=== PATIENT | female | born 1940 | race Caucasian/White ===

== ENCOUNTER 2016-08-24 15:06 | Inpatient (IN) | payer MEDICARE ==
[~2016-08-24] VITALS: Ht 152.4 cm; Wt 45.5 kg
[~2016-08-24 15:06] MED LIST: CALC667C9 PO; CITA20TA PO; DIAZ10TA PO; FLAX100010 PO; FURO40TA4 PO; LACT1CAP44 PO; LEVO500T79 PO; MAGN800O PO; OMEG1CAP56 PO; ONDA-53 PO; OXYC1TAB24 PO; POLY17PO6 PO; TETR15DR77 BOTH_EYES
[2016-08-24 16:30] VITALS: BP 143/72; PULSE 65; RESP 17; O2SAT 95
--- NOTE | 2016-08-24 16:30 | NUR ---
admitted to room 1014 from [facility] ER 76 year old dialysis pt with SBO, her next dialysis day is Saturday 08/26. She has continual mild nausea, but no vomiting. abd soft, pt had normal BM this am at [facility] according to [facility] nurse. Diarrhea this afternoon after getting here. She denies pain really, says it just feels like a constant mild nausea
[2016-08-24] MEDS ORDERED: LACT1CAP75 PO (17:48)
[2016-08-24] MEDS ORDERED: OMEG-38 PO (17:48)
--- NOTE | 2016-08-24 17:49 | PCM.HPMED ---
Subjective Date of Service Aug 24, 2016 Primary Provider: Admitting Physician: Shahid Sheppard MD Primary Care Physician: Gisela Adams MD Attending Physician: Shahid Sheppard MD Chief Complaint: Abdominal pain for 11 days History of Present Illness: 76-year-old female with h/o multiple abdominal surgeries, small bowel obstructions secondary to adhesions, ESRD on HD, h/o renal cell CA s/p left nephrectomy and PUD is transferred from [facility] with necessary of surgical consult due to persistent SBO. Patient was in usual state of health until 11 days ago when she was treated for chronic skin infection on her leg with antibiotics daily, then next day, she started having sharp, periumbilical pain, which got transiently worse for 1- 2days then eased to dull pain, 2/10, pt was seen by PCP 7days ago, ordered CT abd, which was done today. CT abd showed pneumoatosis with intramural gas in celcum and ascending colon. Patient got a call from PCP to go to [facility] ED. patient then again was confirmed the findings with acute abominal series, was transferred to [facility] for surgical evaluation. patient has nausea always unchanged from baseline, no vomiting, having regular BM bid loose stools -unchanged, had poor appetite, otherwise, patient was well, denied fever, chills. labs at [place] showed wbc6.8, [id number], lactate0.5, [id number], [id number] Of note, patient was admitted with high-grade small bowel obstruction in 2014, thought to be related with post surgical adhesion given left nephrectomy for cancer and multiple hernia repair surgeries in the past. patient was treated conservatively w/o NG as pt refused. Symptoms/obstruction resolved with IVF, NPO , toleated diet and discharged. During the interview, patient didn't look toxic, c/o mild pain 2/10 on LLQ. ROS: denied chest pain, cough, sick contact, travel. Review of Systems: Pertinent positives as noted in history of present illness. All other systems were reviewed and are negative Allergies Coded Allergies: Penicillins (Verified Allergy, Severe, rash, 08/24/16) codeine (Verified Allergy, Severe, hallucinations, 08/24/16) prednisone (Verified Allergy, Severe, hallucinations, 08/24/16) cephalexin (Unverified Allergy, Intermediate, Rash, 08/24/16) Developed a rash 3 days after staring medication. amlodipine (Verified Allergy, Unknown, 08/24/16) hydrocodone (Verified Allergy, Unknown, Nausea, 08/24/16) Uncoded Allergies: PCN (Allergy, Unknown, 04/04/14) Home Medications Celexa 60 mg daily valium 30mg qhs percocet 5-325mg tid furosemide 80mg on Sat, Sun Miralax daily as needed Probiotic Fish oil Visine opth drops PMH Depression History of renal cancer status post left nephrectomy,resultant ESRD on HD on Mon , Mon Surgical History Hysterectomy Multiple hernia repair Left nephrectomy Family History No history of CAD Social History Hx Alcohol Use: No Hx Substance Use: No Hx Tobacco Use: No (quit smoking a year ago 3-6cig over 50yrs) Smoking Status: Current Every Day Smoker Additional Information lives alone with dog Exam Vital Signs Vital Sign - Last Date Time Temp Pulse Resp B/P Pulse Ox O2 Delivery O2 Flow Rate FiO2 08/24/16 16:30 36.7 65 17 143/72 95 Room Air Exam NAD, comfortably laying down on the bed no JVD, MMM, no LAD RRR, nl s1, s2 no mrg CTAB, no w,c S,ND,mild diffuse tenderness, hyperactive BS+ warm, no edema, pulses 2/2 Assessment & Plan 76-year-old female with h/o multiple abdominal surgeries, small bowel obstructions secondary to adhesions, ESRD on HD, h/o renal cell CA s/p left nephrectomy and PUD is transferred from [facility] with necessary of surgical consult acute, active abdominal pain, mild degree, subacute onset, POA, probable SBO vs ileus, concerning findings of pneumatosis. However, patient is not toxic looking, abodmen exam was relatively benign, no other GI symptms than pain, decreased appetite. -awaits official report of CT abd from [place] -spoke , given benign findings, surgery will see patient tomorrow. likely -recommended to keep NPO, avoid opioid, -would not start IVF given ESRD, will try small bolus, if patient develops vomiting, diarrhea -will control pain with tylenol, will consder NSAID if pain gets worse -will call clarification operator tonight, if pt acutely gets worse -hold home bowel regimen as well chronic, stable depression, continue celexa History of renal cancer status post left nephrectomy,resultant ESRD on HD on Mon , Fri, continue HD as scheduled, pt seems euvolemic dispo:Patient will be admitted with inpatient status with expectation of inpatient therapy for more than 2 midnights diet:NPO for now dvt ppx:HSQ DO NOT RESUSCITATE, DO NOT INTUBATE, verbally confirmed Time spent 65min Rich Win MD Aug 24, 2016 17:19
[2016-08-24] MEDS ORDERED: ZINC30CA PO (17:50)
[2016-08-24] MEDS ORDERED: FLAX100038 PO (17:50)
[2016-08-24] MEDS ORDERED: Ondansetron 2 mg/mL 2 mL Inj IVPUSH PRN (17:50)
[2016-08-24] MEDS ORDERED: [UNRECOGNIZED DRUG - CODE] PO (17:51)
[2016-08-24 20:10] VITALS: BP 96/49; PULSE 56; RESP 17; O2SAT 96
[2016-08-24] MEDS: Heparin 5,000 Unit/mL Inj SUBQ SCH (21:46)
[2016-08-25 00:19] VITALS: BP 119/60; PULSE 62; RESP 17; O2SAT 94
--- NOTE | 2016-08-25 04:18 | NUR ---
Activity Pt states nausea and pain are currently at baseline level. She reportedly has had no emesis and several loose BM today. Pt is NPO, given swabs and ice chips for comfort; she reports she maintains fluid restrictions at home as well. Next dialysis date Saturday 08/26. Per MD note no IVF to be initiated unless diarrhea/emesis occur. Pt reports no CP/SOB. Care continues
[2016-08-25 05:46] VITALS: BP 102/52; PULSE 64; RESP 17; O2SAT 95
[2016-08-25 05:46] LABS: BASOPHILS % (AUTO) 0.6 % (0-3); EOSINOPHILS % (AUTO) 1.7 % (0-5); MONOCYTES % (AUTO) 5.4 % (4-12); Mean Corpuscular Hemoglobin 32.6 pg (27.0-35.0); NEUTROPHILS % (AUTO) 69.1 % (40-74); Platelet Count 274 bil/L (150-400)
[2016-08-25 06:12] LABS: Magnesium 3.6 mg/dL (1.6-2.6); Phosphorus 3.6 mg/dL (2.5-4.9)
--- NOTE | 2016-08-25 07:58 | CONS ---
[address] [address] CONSULTATION REPORT PATIENT: MART MURPHY : 1940 MR#: [id number] ADMIT: 08/24/2016 JOB ID: [id number] DATE OF SERVICE: 08/25/2016 CHIEF COMPLAINT: Abdominal pain. HISTORY OF PRESENT ILLNESS: The patient is a 76-year-old woman, who was transferred to [facility] for admission by her primary care provider, Dr. Adams. The patient developed abdominal pain above her baseline on Monday. She has chronic nausea that has been present since she started dialysis over one year ago, associated with mild abdominal pain. The pain that she had was worse than normal, periumbilical and diffuse. She decided to "tough it out." She had a scheduled followup appointment with her primary care provider on Monday, so she kept that appointment. After discussing her symptoms with Dr. Adams, a CT scan of the abdomen and pelvis was obtained. This CAT scan did not have IV contrast, because of her chronic renal failure on hemodialysis. The CT scan showed imaging characteristics of pneumatosis coli affecting the cecum, right colon and proximal transverse colon. There was no free air and no portal venous gas. Because of those findings, it was recommended that she be evaluated by a surgeon. She was seen at [facility] and transferred to [facility] for surgical evaluation. Of note, she has been having normal bowel movements throughout this entire process. She has not had any vomiting. There has not been any blood in her stool. She thinks her last colonoscopy was 8-10 years ago. Right now she is not complaining of abdominal pain. She is hungry. PAST MEDICAL HISTORY: Chronic kidney disease on hemodialysis, Monday and Monday. Depression. PAST SURGICAL HISTORY: Left nephrectomy for renal cell carcinoma, hysterectomy, left inguinal hernia repair with mesh. HOME MEDICATIONS: Celexa, Valium, Percocet, furosemide, MiraLAX, probiotic, fish oil, Visine eye drops. ALLERGIES: 1. PENICILLINS. 2. CODEINE. 3. PREDNISONE. 4. KEFLEX. 5. AMLODIPINE. 6. HYDROCODONE. SOCIAL HISTORY: She quit smoking one year ago. She denies alcohol or illicit drug use. FAMILY HISTORY: Negative for coronary artery disease. REVIEW OF SYSTEMS: A 10-point review of systems is negative except as described in history of present illness. PHYSICAL EXAMINATION: Vital Signs: Body mass index 19.6, temperature 36.5, pulse 64, blood pressure 102/52, saturation 95% on room air. General: She is resting in bed in no acute distress. HEENT: Sclerae are anicteric. Mucous membranes are moist. Neck: No lymphadenopathy. Chest is clear. Heart: Regular rate and rhythm. No murmurs. Abdomen is nondistended, soft. Bowel tones are present. She has no guarding and no rebound tenderness. There are no palpable hernias. She has a midline scar from the umbilicus down to the symphysis pubis. Extremities: She has a left arm arteriovenous fistula for dialysis. No edema. Neuro: No deficits. Psychiatric: Affect is appropriate. LABORATORIES: White blood cell count is 6.3, hematocrit 38.9, platelets 274, differential is normal. Potassium 4.9, bicarb 26, BUN 34, creatinine 3.05, glucose 58. Lactate 0.8. Albumin 4.0. 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 I am not sure if she truly has pneumatosis coli or if this could be a false positive finding. She does get hypotensive with dialysis, as is common, and so the possibility of ischemia is there. She does not need surgical intervention. I have recommended that she be given a diet and if she tolerates some food today that she be discharged from the hospital. I do think that she should have a colonoscopy in the next 1-2 months.
--- NOTE | 2016-08-25 09:25 | PCM.DIMED ---
Discharge Instructions Date of Service Aug 25, 2016 Dates of Hospitalization Aug 24, 2016 at 16:40 Discharge Diagnosis Discharge Diagnosis probable small bowel obstruction with pneumatosis Diet Other (please slowly advance your diet) Activity No restrictions Call your provider Vomitting, Excessive diarrhea Patient Instructions You were hospitalized with concern for blockage in your small bowel, Images showed concerning findings of possible air in your bowel wall. You were evaluated by the surgeon, deemed safe for d/c as you tolerated diet, remained relatively symptoms free. Please note that it's recommended to have colonoscopy in 3month for follow up Follow-up plan Please follow up with your primary doctor in 2weeks Follow-up Provider: Gisela Adams MD Follow-up with PCP in: 2 weeks Rich Win MD Aug 25, 2016 09:24
[2016-08-25] MEDS: Heparin 5,000 Unit/mL Inj SUBQ SCH (09:32)
--- NOTE | 2016-08-25 13:41 | NUR ---
Social Work: Initial Assessment Data & Assessment: See Initial Assessment. EMR Reviewed. Patient is a 76 y/o female that admitted on 08/24/16 for SBO per H&P. Patient confirmed that her PCP is Gisela Adams. Patient's insurance is Medicare and [employer]. Patient states that her NOK/DPOA is her sister Parrish Marin [phone]. Patient re-admit score is 5-high risk. Patient has no LTC or VA benefits. Patient lives at home alone in a one story home with two steps to enter where patient is independent at baseline. Patient does drive. Patient has no DME. Patient has no HH or SNF history. Patient does not have any identified needs at the current time. Patient will transport home via POV with her niece Marjorie [phone] when discharged. SW provided phone number and plan on white board in room. SW will continue to follow. Plan: Anticipated discharge home via POV when medically ready. No discharge needs identified at this time. SW to continue to follow if any needs arise. Karime Gage LMSW, PRASHANT Addendum: 08/25/16 at 1350 by KARIME GAGE SS Amended: Links added.
--- NOTE | 2016-08-25 15:50 | NUR ---
Discharge Pt discharged to home - awaiting friend for pickup. Pt A&Ox3, BUSH, IV dc'd intact, Stable condition, No scripts given, CareNotes provided on dc dx and instructed on s/sx to seek medication for. All personal belongings in hand. No questions/concerns left unanswered. Addendum: 08/25/16 at 1650 by RONA KELLER RN Pt walked off unit to friend vehicle.
--- NOTE | 2016-08-26 12:02 | PCM.DC.MED ---
Discharge Summary Date of Service Aug 25, 2016 Dates of Hospitalization Date of Hospital Admission Aug 24, 2016 at 16:40 Date of Discharge: Aug 25, 2016 Providers: Admitting Physician: Shahid Sheppard MD Primary Care Physician: Gisela Adams MD Attending Physician: Shahid Sheppard MD Diagnosis at Time of Discharge Diagnosis at Time of Discharge probable small bowel obstruction with pneumatosis depression History of renal cancer status post left nephrectomy ESRD on HD Consultations Gen surgery Procedures XRay, CTs & MRIs CT abd showed pneumoatosis with intramural gas in celcum and ascending colon at [facility] Brief History HPI obtained by on 08/24 76-year-old female with h/o multiple abdominal surgeries, small bowel obstructions secondary to adhesions, ESRD on HD, h/o renal cell CA s/p left nephrectomy and PUD is transferred from [facility] with necessary of surgical consult due to persistent SBO. Patient was in usual state of health until 11 days ago when she was treated for chronic skin infection on her leg with antibiotics daily, then next day, she started having sharp, periumbilical pain, which got transiently worse for 1- 2days then eased to dull pain, 2/10, pt was seen by PCP 7days ago, ordered CT abd, which was done today. CT abd showed pneumoatosis with intramural gas in celcum and ascending colon. Patient got a call from PCP to go to [facility] ED. patient then again was confirmed the findings with acute abominal series, was transferred to [facility] for surgical evaluation. patient has nausea always unchanged from baseline, no vomiting, having regular BM bid loose stools -unchanged, had poor appetite, otherwise, patient was well, denied fever, chills. labs at [place] showed wbc6.8, [id number], lactate0.5, [id number], [id number] Of note, patient was admitted with high-grade small bowel obstruction in 2014, thought to be related with post surgical adhesion given left nephrectomy for cancer and multiple hernia repair surgeries in the past. patient was treated conservatively w/o NG as pt refused. Symptoms/obstruction resolved with IVF, NPO , toleated diet and discharged. During the interview, patient didn't look toxic, c/o mild pain 2/10 on LLQ. ROS: denied chest pain, cough, sick contact, travel. Hospital Course 76-year-old female with h/o multiple abdominal surgeries, small bowel obstructions secondary to adhesions, ESRD on HD, h/o renal cell CA s/p left nephrectomy and PUD is transferred from [facility] with necessary of surgical consult acute abdominal pain, mild degree, subacute onset, POA, probable SBO vs ileus, concerning findings of pneumatosis on CT. However, patient was not toxic looking , abodmen exam remained relatively benign, no other GI symptms than pain, decreased appetite. patient was monitored closely for one day, tolerated diet. deemed safe for d/c by surgery. As per , It's possible that this false positive given benign clinical status, patient was asked to advance her diet slowly and return to hospital if symptoms get worse, close follow up with in 2weeks. chronic depression, continued celexa History of renal cancer status post left nephrectomy,resultant ESRD on HD on Mon , Fri, continue HD as scheduled, pt seems euvolemic Exam Vital Signs (Last) Date Time Temp Pulse Resp B/P Pulse Ox O2 Delivery O2 Flow Rate FiO2 08/25/16 05:46 36.5 64 17 102/52 95 Room Air Exam NAD, comfortably laying down on the bed no JVD, MMM, no LAD RRR, nl s1, s2 no mrg CTAB, no w,c S,ND,mild tenderness, hyperactive BS+ warm, no edema, pulses 2/2 Test 08/25/16 05:12 White Blood Count 6.3th/mm3 (3.8-10.1) Red Blood Count 3.89mil/mm3 (3.90-5.20) Hemoglobin 12.7g/dL (12.0-15.6) Hematocrit 38.9% (35.0-46.0) Mean Corpuscular Volume 100.0fL (81-100) Mean Corpuscular Hemoglobin 32.6pg (27.0-35.0) Mean Corpuscular Hemoglobin Concent 32.6% (32.0-37.0) Red Cell Distribution Width 12.2% (12.3-15.4) Platelet Count 274bil/L (150-400) Neutrophils (%) (Auto) 69.1% (40-74) Lymphocytes (%) (Auto) 23.0% (14-46) Monocytes (%) (Auto) 5.4% (4-12) Eosinophils (%) (Auto) 1.7% (0-5) Basophils (%) (Auto) 0.6% (0-3) Sodium Level 139mEq/L (134-144) Potassium Level 4.9mEq/L (3.5-5.2) Chloride Level 99mEq/L (97-108) Carbon Dioxide Level 26mmol/L (18-29) Blood Urea Nitrogen 34mg/dL (8-27) Creatinine 3.05mg/dL (0.57-1.00) Estimat Glomerular Filtration Rate 21mL/min (>59) Glucose Level 58mg/dL (60-99) Lactic Acid Level 0.8mmol/L (0.4-2.0) Calcium Level 10.2mg/dL (8.5-10.1) Phosphorus Level 3.6mg/dL (2.5-4.9) Magnesium Level 3.6mg/dL (1.6-2.6) Total Bilirubin 0.4mg/dL (0.0-1.2) Aspartate Amino Transf (AST/SGOT) 32U/L (0-50) Alanine Aminotransferase (ALT/SGPT) 28U/L (0-32) Alkaline Phosphatase 121U/L (25-165) Total Protein 6.1g/dL (6.4-8.4) Albumin 4.0g/dL (3.4-5.0) Procalcitonin 0.11ng/mL (0.00-0.08) Discharge Medications Discharge Medications Citalopram Hydrobromide (Celexa) 20 Mg Tablet 60 MG PO QAM (Reported) Diazepam (Valium) 10 Mg Tablet 30 MG PO HS (Reported) Flaxseed Oil ([place]-3 Flaxseed Oil) 1,000 Mg Capsule 2,000 MG PO QAM (Reported) Lactobacillus Combo No.10 (Probiotic) 1 Each Capsule 1 EACH PO DAILY (Reported) Magnesium Hydroxide (Milk of Magnesia) 2,400 Mg/10 Ml Oral.susp 10 ML PO HS ( Reported) Multivitamin/Iron/Folic Acid (Daily Vit Formula + Iron Tab) 18 Mg Iron-400 Mcg Tablet 1 EACH PO DAILY (Reported) [place]-3/Dha/Epa/Fish Oil (Fish Oil 1,000 mg Softgel) 1 Each Capsule 4 EACH PO QAM (Reported) Polyethylene Glycol 3350 (Miralax) 17 Gm Powd.pack 17 GM PO DAILY Prescribed by: RACHEL PERRY MD Tetrahydrozoline HCl/Zn Sulf (Visine Allergy Relief Drop) 15 Ml Drops 1 DROP BOTH_EYES DAILY (Reported) Zinc Gluconate-Zinc Picolinate (Zinc) 30 Mg Capsule 30 MG PO QAM (Reported) As needed Furosemide (Furosemide) 40 Mg Tablet 40 MG PO DAILY PRN PRN leg edema (Reported ) oxyCODONE-Acetaminophen 5-325 mg (oxyCODONE-Acetaminophen 5-325 mg) 1 Each Tablet 1 TAB PO TID PRN PRN For Pain (Reported) Followup Plan Disposition: home Follow-up plan Please follow up with your primary doctor in 2weeks Discharge Diet: Other (please slowly advance your diet) Discharge Activity: No restrictions Patient Instructions You were hospitalized with concern for blockage in your small bowel, Images showed concerning findings of possible air in your bowel wall. You were evaluated by the surgeon, deemed safe for d/c as you tolerated diet, remained relatively symptoms free. Please note that it's recommended to have colonoscopy in 3month for follow up Follow-up Provider: Gisela Adams MD Follow-up with PCP in: 2 weeks Time spent 65min Rich Win MD Aug 25, 2016 14:50
== END 2016-08-25 16:30 | disposition home or self-care (01) | DRG 393 ==
LOC: OSC 16:40
PROVIDERS: ADMIT Internal Medicine; ATTEND Internal Medicine
DX: K63.89 Other specified diseases of intestine (principal); N18.6 End stage renal disease; F32.9 Major depressive disorder, single episode, unspecified; Z66 Do not resuscitate; F17.200 Nicotine dependence, unspecified, uncomplicated; Z85.528 Personal history of other malignant neoplasm of kidney; Z90.5 Acquired absence of kidney; Z99.2 Dependence on renal dialysis; Z88.0 Allergy status to penicillin

== ENCOUNTER 2017-01-25 00:38 | Day surgery (SDC) | payer MEDICARE ==
[~2017-01-25] VITALS: Ht 152.4 cm; Wt 45.0 kg
[~2017-01-25 00:38] MED LIST changes: -CALC667C9 PO; -FLAX100010 PO; +FLAX100038 PO; -LACT1CAP44 PO; +LACT1CAP75 PO; -LEVO500T79 PO; +OMEG-38 PO; -OMEG1CAP56 PO; -ONDA-53 PO; +ZINC30CA PO; +[UNRECOGNIZED DRUG - CODE] PO
[2017-01-25 08:32] VITALS: BP 115/52; PULSE 61
[2017-01-25 09:04] LABS: INR 0.97 ratio
[2017-01-25] MEDS ORDERED: Heparin 10,000 Unit/1,000 mL NS Premix IV ONE (09:56)
[2017-01-25] MEDS ORDERED: Heparin 1,000 Unit/mL 10 mL Inj ONE (09:56)
[2017-01-25] MEDS ORDERED: fentaNYL-PF 50 mCg/mL 2 mL Inj ONE (10:08)
[2017-01-25 11:30] VITALS: BP 108/49; PULSE 60
[2017-01-25 11:45] VITALS: BP 116/44; PULSE 58
[2017-01-25 12:00] VITALS: BP 117/61; PULSE 57
[2017-01-25 12:15] VITALS: BP 117/61; PULSE 61
--- NOTE | 2017-01-25 13:28 | DRSVH ---
PROCEDURE: 1. Left upper extremity arteriovenous fistulogram. 2. Angioplasty of left central cephalic vein. 3. Conscious sedation x75 minutes. INDICATIONS: Malfunctioning arteriovenous fistula. COMPARISON: None. TECHNIQUE: Informed, written consent from the patient was obtained prior to the procedure. Patient wa s brought to the angiography suite, and conscious sedation was administered intravenously by usp staff, while continuous cardiorespiratory monitoring was performed. Maximal sterile barrier t echnique, hand hygiene, skin preparation, and sterile ultrasound technique (if ultrasound was utilize d) was followed. A mask, sterile gown, sterile gloves, a large sterile sheet, hand hygiene, and 2% ch lorhexidine or iodine was utilized for skin antisepsis. The left upper extremity was prepped and drap ed sterilely, and the skin and subcutaneous tissues overlying the peripheral aspect of the venous ling b were infused with lidocaine. The peripheral aspect of the venous limb was accessed antegrade with a micropuncture set. Contrast was injected for arteriovenous fistulogram. Intravenous heparin was admi nistered. An 035 Glidewire was advanced into the IVC with the aid of a 4 K[place]z nontapered angled cat heter, through which the Glidewire was exchanged for an 035 exchange length J-wire. A 6 [place] sheath was advanced. A 40 mm long balloon was advanced into the cephalic arch and expanded d to 7.3 mm diam eter, followed by repeat arteriovenous fistulogram. A 40 mm long balloon was advanced into the cephal ic arch and expanded to 8.3 mm diameter, followed by arteriovenous fistulogram. This was repeated twi ce, followed by arteriovenous fistulography. Sheath was removed and the venotomy was closed with purs estring closure. FLUOROSCOPY TIME: 6.7 minutes FINDINGS: The arteriovenous anastomosis is grossly patent, but suboptimally evaluated. There is mode rate distention of the peripheral aspect of the venous limb. There are multifocal high-grade stenoses within the cephalic arch with multiple surrounding collateral vessels. Only mild residual stenosis r emains following final 8.3 mm angioplasty The central draining venous structures are patent. IMPRESSION: 1. Multifocal high-grade stenoses within the cephalic arch, resolved following 8.3 mm angioplasty. Dictated by: Rick Mccallum M.D. on 01/25/2017 at 13:21 Approved by: Rick Mccallum M.D. on 01/25/2017 at 13:27
== END 2017-01-25 23:59 | disposition home or self-care (01) ==
LOC: SOUO 00:38
PROVIDERS: ATTEND Radiology Diagnostic Radiology
DX: I87.1 Compression of vein (principal); Z85.528 Personal history of other malignant neoplasm of kidney; Z90.5 Acquired absence of kidney; N18.6 End stage renal disease; Z99.2 Dependence on renal dialysis
CPT/HCPCS: 36415; 36902; 85049; 85610; 99152; 99153; C1725; C1769; C1894; J1644; J2250; J3010; Q9967